=== PATIENT | female | born 1990 | race Caucasian/White ===

== ENCOUNTER → 2018-06-11 | Outpatient (CLI) | payer OTHER ==
[~2018-06-11] MED LIST: BENZ100A PO; CEPH500 PO; DIAZ5 PO; HYDACE5 PO; HYDACE5325 PO; IBUP600 PO; Norco 5-325 Ta1 EACH PO; OXYACE5T PO; PHENA200 PO; Percocet 5-3251 EACH PO; RXHYDACE PO; SULTRIDS PO
== END | disposition home or self-care (01) ==
LOC: LAB SHORT 14:54 → LAB EV 14:54
DX: N92.0 Excessive and frequent menstruation with regular cycle (principal)
CPT/HCPCS: 87070; 87205

== ENCOUNTER → 2018-06-30 | Outpatient (CLI) | payer OTHER ==
[2018-06-30 13:15] LABS: Source, Urine Clean Catch
[2018-06-30 13:58] LABS: Bacteria Many /hpf; Hyaline Casts Rare /lpf (0-2); Red Blood Cells, Urine Rare /hpf (0-2); Squamous Epithelial Cells Many /hpf (Few); Transitional Epithelial Cells Rare /hpf (0-Rare)
[2018-07-01 09:42] LABS: Candida species (DNA Probe) Negative (NEGATIVE); G. vaginalis (DNA Probe) Negative (NEGATIVE); T. vaginalis (DNA Probe) Negative (NEGATIVE)
[2018-07-02 09:12] LABS: HBSAG SCREEN Negative (Negative); HEP A AB, IGM Negative (Negative); HEP B CORE AB, IGM Negative (Negative); HEP C VIRUS AB <0.1 (0.0-0.9)
[2018-07-02 11:07] LABS: HIV SCREEN 4TH GENERATION WRFX Non Reactive (Non Reactive)
[2018-07-03 04:10] LABS: CHLAMYDIA TRACHOMATIS, NAA Negative (Negative); NEISSERIA GONORRHOEAE, NAA Negative (Negative)
== END | disposition home or self-care (01) ==
LOC: LAB EV 12:15 → LAB SHORT 12:15
PROVIDERS: Physician Assistant
DX: R30.0 Dysuria (principal); Z20.9 Contact with and (suspected) exposure to unspecified communicable disease
CPT/HCPCS: 80074; 81015; 84702; 86592; 86694; 86695; 86696; 87086; 87389; 87480; 87491; 87510; 87591; 87660

== ENCOUNTER → 2019-03-22 | Outpatient (CLI) | payer OTHER | LOC: LAB SHORT 11:36 → LAB EV 11:36 | DX: N39.0 Urinary tract infection, site not specified (principal) | CPT/HCPCS: 87077; 87086; 87186 ==

== ENCOUNTER 2019-11-13 23:09 | Emergency (ER) | payer OTHER ==
[~2019-11-13] VITALS: Ht 162.6 cm; Wt 65.8 kg
[2019-11-13] MEDS ORDERED: KETO10 PO (23:36)
== END 2019-11-14 | disposition home or self-care (01) ==
LOC: ER 23:09
DX: J02.0 Streptococcal pharyngitis (principal); J02.8 Acute pharyngitis due to other specified organisms; F17.200 Nicotine dependence, unspecified, uncomplicated
CPT/HCPCS: 87430; 96372; 99282-25; A9270-GY; J0561; J1100

== ENCOUNTER → 2020-03-10 | Outpatient (CLI) | payer OTHER ==
[~2020-03-10] MED LIST changes: +KETO10 PO
== END | disposition home or self-care (01) ==
LOC: LAB EV 09:51 → LAB SHORT 09:51
DX: J02.9 Acute pharyngitis, unspecified (principal)
CPT/HCPCS: 87081

== ENCOUNTER 2020-03-11 04:40 | Emergency (ER) | payer OTHER ==
[~2020-03-11] VITALS: Ht 162.6 cm; Wt 77.1 kg
== END 2020-03-11 06:36 | disposition home or self-care (01) ==
LOC: ER 04:40
DX: J02.9 Acute pharyngitis, unspecified (principal); F17.200 Nicotine dependence, unspecified, uncomplicated
CPT/HCPCS: 86308; 99283; J7512

== ENCOUNTER → 2020-08-02 | Outpatient (CLI) | payer OTHER | END | disposition home or self-care (01) | LOC: LAB SHORT 17:18 → LAB EV 17:18 | DX: J02.9 Acute pharyngitis, unspecified (principal); R53.83 Other fatigue | CPT/HCPCS: 84443; 87081 ==

== ENCOUNTER → 2021-03-29 | Outpatient (CLI) | payer OTHER | END | disposition home or self-care (01) | LOC: LAB 14:06 → LAB SHORT 14:06 | DX: N39.0 Urinary tract infection, site not specified (principal) | CPT/HCPCS: 87077; 87086; 87186 ==

== ENCOUNTER 2021-06-13 17:50 | Emergency (ER) | payer OTHER ==
[~2021-06-13] VITALS: Ht 162.6 cm; Wt 84.4 kg
[2021-06-13] MEDS ORDERED: ONDA4ODT MM (18:19)
== END 2021-06-13 18:30 | disposition home or self-care (01) ==
LOC: ER 17:50
DX: U07.1 COVID-19 (principal); F17.200 Nicotine dependence, unspecified, uncomplicated
CPT/HCPCS: 99282

== ENCOUNTER → 2021-11-28 | Outpatient (CLI) | payer OTHER ==
[~2021-11-28] MED LIST changes: +CYCL10 PO; +LIDO700A20 TOP; +ONDA4ODT MM
[2021-11-29 09:44] LABS: Candida species (DNA Probe) Negative (NEGATIVE); G. vaginalis (DNA Probe) Positive (NEGATIVE); T. vaginalis (DNA Probe) Negative (NEGATIVE)
== END | disposition home or self-care (01) ==
LOC: LAB SHORT 12:20 → LAB 12:20
PROVIDERS: Advanced Practice Midwife
DX: Z01.419 Encounter for gynecological examination (general) (routine) without abnormal findings (principal); N76.0 Acute vaginitis
CPT/HCPCS: 87480; 87510; 87660

== ENCOUNTER 2021-12-29 19:22 | Emergency (ER) | payer OTHER ==
[~2021-12-29] VITALS: Ht 162.6 cm; Wt 83.9 kg
[2021-12-29] MEDS ORDERED: Lisinopril2.5 MG PO (21:42)
[2021-12-29] MEDS ORDERED: BUSPIRONE HCL5 M6 PO (21:42)
== END 2021-12-29 22:21 | disposition home or self-care (01) ==
LOC: ER 19:22
DX: S60.121A Contusion of right index finger with damage to nail, initial encounter (principal); W23.0XXA Caught, crushed, jammed, or pinched between moving objects, initial encounter; Z79.899 Other long term (current) drug therapy; J45.909 Unspecified asthma, uncomplicated; F17.200 Nicotine dependence, unspecified, uncomplicated
CPT/HCPCS: 29130; 73140; 99283-25

== ENCOUNTER → 2022-01-03 | Outpatient (CLI) | payer OTHER ==
[~2022-01-03] MED LIST changes: +BUSPIRONE HCL5 M6 PO; +Lisinopril2.5 MG PO
== END | disposition home or self-care (01) ==
LOC: PLD 12:59 → LAB SHORT 12:59
DX: R87.810 Cervical high risk human papillomavirus (HPV) DNA test positive (principal)
CPT/HCPCS: 88305

== ENCOUNTER → 2022-01-03 | Outpatient (CLI) | payer OTHER ==
[2022-01-03 13:45] LABS: Candida species (DNA Probe) Negative (NEGATIVE); G. vaginalis (DNA Probe) Negative (NEGATIVE); T. vaginalis (DNA Probe) Negative (NEGATIVE)
== END | disposition home or self-care (01) ==
LOC: LAB SHORT 09:51
PROVIDERS: Obstetrics & Gynecology
DX: N89.8 Other specified noninflammatory disorders of vagina (principal)
CPT/HCPCS: 87480; 87510; 87660

== ENCOUNTER 2022-02-07 18:20 | Emergency (ER) | payer OTHER ==
[~2022-02-07] VITALS: Ht 162.6 cm; Wt 90.7 kg
[~2022-02-07 18:20] MED LIST changes: +NITR100CA PO
[2022-02-07] MEDS ORDERED: LOSARTAN POTASS25 M2 PO (18:26)
[2022-02-07] MEDS ORDERED: Tri-Sprintec1 EACH PO (18:26)
[2022-02-07] MEDS ORDERED: Monodox100 MG PO (18:36)
== END 2022-02-07 19:22 | disposition home or self-care (01) ==
LOC: ER 18:20
DX: A56.02 Chlamydial vulvovaginitis (principal); J45.909 Unspecified asthma, uncomplicated; F17.200 Nicotine dependence, unspecified, uncomplicated; Z79.899 Other long term (current) drug therapy
CPT/HCPCS: 99282

== ENCOUNTER → 2022-11-10 | Outpatient (CLI) | payer OTHER ==
[~2022-11-10] MED LIST changes: +LOSARTAN POTASS25 M2 PO; +Monodox100 MG PO; +Tri-Sprintec1 EACH PO
[2022-11-10 17:05] LABS: Source, Urine Clean Catch
[2022-11-10 17:30] LABS: Appearance, Urine Clear (Clear); Bilirubin, Urine Neg (Neg); Blood, Urine 1+ (Neg); Color, Urine Yellow (P-Yellow); Glucose Qualitative, Urine Neg (Neg); Ketones, Urine Neg (Neg); Leukocyte Esterase, Urine 1+ (Neg); Nitrite, Urine Neg (Neg); Protein, Urine Neg (Neg); Specific Gravity, Urine 1.015 (1.003-1.022); Urobilinogen, Urine NORM (Normal)
[2022-11-10 17:36] LABS: Bacteria Many /hpf; Squamous Epithelial Cells Mod /hpf (Few)
[2022-11-10 17:44] LABS: U Amphetamine Screen Not Detected; U Barbituate Screen Not Detected; U Benzodiazapine Screen Not Detected; U Buprenorphine Screen Not Detected; U Cannabinoids Screen Not Detected; U Cocaine Screen Not Detected; U Methadone Screen Not Detected; U Methamphetamine Screen Not Detected; U Opiates Screen Not Detected; U Oxycodone Screen Not Detected; U Phencyclidine Screen Not Detected; U Propoxyphene Screen Not Detected
== END | disposition home or self-care (01) ==
LOC: LAB SHORT 16:00 → LAB 16:00
PROVIDERS: Advanced Practice Midwife
DX: Z34.01 Encounter for supervision of normal first pregnancy, first trimester (principal)
CPT/HCPCS: 81001; 87086

== ENCOUNTER → 2022-12-08 | Outpatient (CLI) | payer OTHER ==
[2022-12-13 09:12] LABS: CHLAMYDIA TRACHOMATIS, NAA Negative (Negative); HPV 16 Negative (Negative); HPV 18 Negative (Negative); HPV OTHER HR TYPES Negative (Negative)
== END ==
LOC: LAB SHORT 18:25 → LAB 18:25
PROVIDERS: Advanced Practice Midwife
DX: R87.619 Unspecified abnormal cytological findings in specimens from cervix uteri (principal); Z11.3 Encounter for screening for infections with a predominantly sexual mode of transmission
CPT/HCPCS: 87491; 87591; 87624; 88175

== ENCOUNTER → 2023-05-25 | Outpatient (CLI) | payer OTHER | LOC: LAB 18:14 → LAB SHORT 18:14 | DX: O09.93 Supervision of high risk pregnancy, unspecified, third trimester (principal); Z3A.00 Weeks of gestation of pregnancy not specified | CPT/HCPCS: 87081; 87150 ==

== ENCOUNTER 2023-06-19 06:58 | Inpatient (IN) | payer OTHER ==
[~2023-06-19] VITALS: Ht 162.6 cm; Wt 125.9 kg
[2023-06-19] VITALS (34 sets, daily range): BP systolic 103–177; BP diastolic 53–89
[2023-06-19 08:06] LABS: BASOPHILS ABSOLUTE AUTO 0.03 K/mm3 (0.00-0.23); BASOPHILS PERCENT AUTO 0 % (0-2); EOSINOPHILS ABSOLUTE AUTO 0.11 K/mm3 (0.00-0.68); EOSINOPHILS PERCENT AUTO 1 % (0-6); IMMATURE GRAN ABSOLUTE AUTO 0.06 K/mm3 (0.00-0.10); IMMATURE GRAN PERCENT AUTO 1 % (0-1); LYMPHOCYTES ABSOLUTE AUTO 2.92 K/mm3 (0.84-5.20); LYMPHOCYTES PERCENT AUTO 24 % (21-46); MONOCYTES ABSOLUTE AUTO 0.73 K/mm3 (0.16-1.47); MONOCYTES PERCENT AUTO 6 % (4-13); Mean Corpuscular HGB 29.6 pg (26.0-34.0); Mean Corpuscular HGB Conc 35.3 g/dL (31.5-36.5); Mean Corpuscular Volume 84 fL (80-100); NEUTROPHILS PERCENT AUTO 68 % (41-73); Platelet Count 261 K/mm3 (150-400); RDW Coefficient Variation 14.7 % (11.7-14.2); RDW Standard Deviation 45.1 fL (35.1-46.3); Red Blood Cell Count 4.05 M/mm3 (3.80-5.20); White Blood Cell Count 11.95 K/mm3 (4.00-11.30)
[2023-06-19] MEDS ORDERED: HYDHCL25 PO (09:10)
[2023-06-19] MEDS ORDERED: PROP10 PO (09:11)
[2023-06-20] VITALS (83 sets, daily range): BP systolic 106–194; BP diastolic 56–113
--- NOTE | 2023-06-20 07:14 | NUR ---
Report given to Lauren GUTIERREZ
[2023-06-21] VITALS (23 sets, daily range): BP systolic 101–174; BP diastolic 49–82
--- NOTE | 2023-06-21 03:50 | NUR ---
06/21/23 0350 Lachelle Marc BABY BOY BORN AT 0343. CORD SEGEMENT WENT WITH BABY TO RT. THERE WAS NO CORD BLOOD SAMPLE. [place] CATH PLACED UPON ARRIVAL TO OR. PT ALSO NEEDED A HAND ASSIST AND THUS WAS PLACED IN LITHOTOMY WITH STIRRUPS.
[2023-06-21 08:32] LABS: BASOPHILS ABSOLUTE AUTO 0.03 K/mm3 (0.00-0.23); BASOPHILS PERCENT AUTO 0 % (0-2); EOSINOPHILS PERCENT AUTO 0 % (0-6); Hemoglobin 7.4 g/dL (11.5-16.0); IMMATURE GRAN ABSOLUTE AUTO 0.09 K/mm3 (0.00-0.10); IMMATURE GRAN PERCENT AUTO 1 % (0-1); LYMPHOCYTES ABSOLUTE AUTO 1.43 K/mm3 (0.84-5.20); LYMPHOCYTES PERCENT AUTO 8 % (21-46); MONOCYTES ABSOLUTE AUTO 0.79 K/mm3 (0.16-1.47); MONOCYTES PERCENT AUTO 4 % (4-13); Mean Corpuscular HGB 29.2 pg (26.0-34.0); Mean Corpuscular HGB Conc 33.6 g/dL (31.5-36.5); Mean Corpuscular Volume 87 fL (80-100); Mean Platelet Volume 9.6 fL (9.1-12.4); NEUTROPHILS ABSOLUTE AUTO 15.87 K/mm3 (1.96-9.15); NEUTROPHILS PERCENT AUTO 87 % (41-73); Platelet Count 206 K/mm3 (150-400); RDW Coefficient Variation 14.9 % (11.7-14.2); RDW Standard Deviation 47.2 fL (35.1-46.3); Red Blood Cell Count 2.53 M/mm3 (3.80-5.20); White Blood Cell Count 18.21 K/mm3 (4.00-11.30)
[2023-06-21 17:51] LABS: BASOPHILS ABSOLUTE AUTO 0.04 K/mm3 (0.00-0.23); BASOPHILS PERCENT AUTO 0 % (0-2); EOSINOPHILS ABSOLUTE AUTO 0.03 K/mm3 (0.00-0.68); EOSINOPHILS PERCENT AUTO 0 % (0-6); Hematocrit 21.6 % (33.0-51.0); Hemoglobin 7.4 g/dL (11.5-16.0); IMMATURE GRAN ABSOLUTE AUTO 0.12 K/mm3 (0.00-0.10); IMMATURE GRAN PERCENT AUTO 1 % (0-1); LYMPHOCYTES ABSOLUTE AUTO 2.49 K/mm3 (0.84-5.20); LYMPHOCYTES PERCENT AUTO 12 % (21-46); MONOCYTES ABSOLUTE AUTO 1.41 K/mm3 (0.16-1.47); MONOCYTES PERCENT AUTO 7 % (4-13); Mean Corpuscular HGB 29.4 pg (26.0-34.0); Mean Corpuscular HGB Conc 34.3 g/dL (31.5-36.5); Mean Corpuscular Volume 86 fL (80-100); Mean Platelet Volume 9.5 fL (9.1-12.4); NEUTROPHILS ABSOLUTE AUTO 17.26 K/mm3 (1.96-9.15); NEUTROPHILS PERCENT AUTO 81 % (41-73); Platelet Count 250 K/mm3 (150-400); RDW Coefficient Variation 15.1 % (11.7-14.2); RDW Standard Deviation 46.8 fL (35.1-46.3); Red Blood Cell Count 2.52 M/mm3 (3.80-5.20); White Blood Cell Count 21.35 K/mm3 (4.00-11.30)
[2023-06-22] VITALS (18 sets, daily range): BP systolic 115–163; BP diastolic 55–91
[2023-06-22 06:05] LABS: Hematocrit 18.6 % (33.0-51.0); Hemoglobin 6.2 g/dL (11.5-16.0); Mean Corpuscular HGB Conc 33.3 g/dL (31.5-36.5); Mean Corpuscular Volume 87 fL (80-100); Mean Platelet Volume 9.3 fL (9.1-12.4); Platelet Count 219 K/mm3 (150-400); RDW Coefficient Variation 15.2 % (11.7-14.2); RDW Standard Deviation 47.9 fL (35.1-46.3); Red Blood Cell Count 2.14 M/mm3 (3.80-5.20); White Blood Cell Count 15.39 K/mm3 (4.00-11.30)
--- NOTE | 2023-06-22 06:54 | NUR ---
[address] Riddle of hematocrit and hemoglobin results. Order received to transfuse 1 unit PRBC.
[2023-06-22 15:00] LABS: Hematocrit 22.1 % (33.0-51.0); Hemoglobin 7.6 g/dL (11.5-16.0)
[2023-06-23 00:47] VITALS: BP 116/61
[2023-06-23 05:31] VITALS: BP 140/79
[2023-06-23 05:42] LABS: BASOPHILS ABSOLUTE AUTO 0.03 K/mm3 (0.00-0.23); BASOPHILS PERCENT AUTO 0 % (0-2); EOSINOPHILS ABSOLUTE AUTO 0.11 K/mm3 (0.00-0.68); EOSINOPHILS PERCENT AUTO 1 % (0-6); Hematocrit 22.4 % (33.0-51.0); Hemoglobin 7.7 g/dL (11.5-16.0); IMMATURE GRAN ABSOLUTE AUTO 0.17 K/mm3 (0.00-0.10); IMMATURE GRAN PERCENT AUTO 1 % (0-1); LYMPHOCYTES ABSOLUTE AUTO 3.96 K/mm3 (0.84-5.20); LYMPHOCYTES PERCENT AUTO 32 % (21-46); MONOCYTES ABSOLUTE AUTO 0.86 K/mm3 (0.16-1.47); MONOCYTES PERCENT AUTO 7 % (4-13); Mean Corpuscular HGB 29.8 pg (26.0-34.0); Mean Corpuscular HGB Conc 34.4 g/dL (31.5-36.5); Mean Corpuscular Volume 87 fL (80-100); Mean Platelet Volume 8.9 fL (9.1-12.4); NEUTROPHILS ABSOLUTE AUTO 7.29 K/mm3 (1.96-9.15); NEUTROPHILS PERCENT AUTO 59 % (41-73); NRBC ABSOLUTE 0.02 K/mm3 (0.00-0.02); NRBC Auto 0.2 /100 WBC (0.0-0.2); Platelet Count 242 K/mm3 (150-400); RDW Coefficient Variation 14.7 % (11.7-14.2); RDW Standard Deviation 46.6 fL (35.1-46.3); Red Blood Cell Count 2.58 M/mm3 (3.80-5.20); White Blood Cell Count 12.42 K/mm3 (4.00-11.30)
[2023-06-23 08:23] VITALS: BP 135/79
[2023-06-23 11:47] VITALS: BP 136/80
== END 2023-06-23 12:40 | disposition home or self-care (01) | DRG 787 ==
LOC: BC 06:58 → OBS 06:58 → BC 07:06
PROVIDERS: Obstetrics & Gynecology; ADMIT Obstetrics & Gynecology
PROC: 3E0P7VZ Introduction of Hormone into Female Reproductive, Via Natural or Artificial Opening (ICD-10-PCS; principal; 2023-06-19)
PROC: 3E033VJ Introduction of Other Hormone into Peripheral Vein, Percutaneous Approach (ICD-10-PCS; 2023-06-19)
PROC: 0U7C3ZZ Dilation of Cervix, Percutaneous Approach (ICD-10-PCS; 2023-06-19)
PROC: 10907ZC Drainage of Amniotic Fluid, Therapeutic from Products of Conception, Via Natural or Artificial Opening (ICD-10-PCS; 2023-06-19)
PROC: 4A1HXCZ Monitoring of Products of Conception, Cardiac Rate, External Approach (ICD-10-PCS; 2023-06-19)
PROC: 10H07YZ Insertion of Other Device into Products of Conception, Via Natural or Artificial Opening (ICD-10-PCS; 2023-06-19)
PROC: 10D00Z1 Extraction of Products of Conception, Low, Open Approach (ICD-10-PCS; 2023-06-21)
PROC: 30233N1 Transfusion of Nonautologous Red Blood Cells into Peripheral Vein, Percutaneous Approach (ICD-10-PCS; 2023-06-22)
DX: O10.92 Unspecified pre-existing hypertension complicating childbirth (principal); D62 Acute posthemorrhagic anemia; Z3A.39 39 weeks gestation of pregnancy; Z37.0 Single live birth; O99.344 Other mental disorders complicating childbirth; O90.81 Anemia of the puerperium; O99.214 Obesity complicating childbirth; F41.3 Other mixed anxiety disorders; O63.1 Prolonged second stage (of labor); O99.334 Smoking (tobacco) complicating childbirth; F17.210 Nicotine dependence, cigarettes, uncomplicated; O33.4XX0 Maternal care for disproportion of mixed maternal and fetal origin, not applicable or unspecified; O99.52 Diseases of the respiratory system complicating childbirth; J45.909 Unspecified asthma, uncomplicated; Z79.899 Other long term (current) drug therapy; Z67.10 Type A blood, Rh positive
CPT/HCPCS: 36415; 36430; 51702; 59200; 85014; 85018; 85025; 85027; 86850; 86900; 86901; 86923; A9270; J0456; J0690; J1100; J1885; J2001; J2250; J2371; J2590; J2765; J2916; J3010; J7030; J7050; J7120; P9016

== ENCOUNTER 2023-07-13 11:27 | Inpatient (IN) | payer OTHER ==
[~2023-07-13] VITALS: Ht 162.6 cm; Wt 116.2 kg
[2023-07-13] VITALS (12 sets, daily range): BP systolic 131–148; BP diastolic 83–95
[~2023-07-13 11:27] MED LIST changes: +ACET500 PO; +ALBU90OI INH; +HYDHCL25 PO; +IBUP800 PO; +LORA.5 PO; +OXAYDO5 M1 PO; +PRENATAL TABLE1 EAC2 PO; +PROP10 PO
[2023-07-13] MEDS ORDERED: IRON18 MG PO (12:05)
[2023-07-13] MEDS ORDERED: PROBIOTIC1 EA14 PO (12:05)
--- NOTE | 2023-07-13 17:21 | NUR ---
DISCHARGE NOTE: PATIENT WAS EDUCATED ON DISCHARGE INSTRUCTIONS. SHE VERBALIZED UNDERSTANDING OF INSTRUCTIONS AND HAD NO FURTHER QUESTIONS AT THIS TIME. IV WAS TAKEN OUT AND WNL. PAIN IS MANAGED WITH PO PAIN MEDS. HER ABD TRANSVERSE INCISION HAS GAUZE AND A MEDIPORE DRESSING THAT IS C/D/I. PATIENT IS INDEP. IN THE ROOM. SHE IS TOLERATING PO INTAKE AND HAS VOIDED. PATIENT IS DRESSED AND HAS PERSONAL ITEMS IN THE ROOM GATHERED. PATIENT WAS WHEELCHAIRED OUT TO HER FAMILYS CAR TO BE TAKEN HOME. PERSCRIPTIONS WERE ALREADY SENT BY DR. SIMMONS TO HER PREFERRED PHARMACY.
== END 2023-07-13 17:16 | disposition home or self-care (01) | DRG 776 ==
LOC: SURS 11:27 → PRE IP 13:00 → SURS 15:28
PROVIDERS: ADMIT Obstetrics & Gynecology
PROC: 0J980ZZ Drainage of Abdomen Subcutaneous Tissue and Fascia, Open Approach (ICD-10-PCS; principal; 2023-07-13 13:00)
DX: O86.01 Infection of obstetric surgical wound, superficial incisional site (principal); L76.34 Postprocedural seroma of skin and subcutaneous tissue following other procedure; E66.01 Morbid (severe) obesity due to excess calories; F41.8 Other specified anxiety disorders; O90.2 Hematoma of obstetric wound; F17.210 Nicotine dependence, cigarettes, uncomplicated; B96.89 Other specified bacterial agents as the cause of diseases classified elsewhere; J45.909 Unspecified asthma, uncomplicated; Z98.890 Other specified postprocedural states; Z79.891 Long term (current) use of opiate analgesic; Z79.899 Other long term (current) drug therapy
CPT/HCPCS: 84703; 87070; 87075; 87077; 87186; 87205; A9270; J0690; J1100; J1170; J1885; J2250; J2405; J2704; J3010; J7120

== ENCOUNTER → 2023-07-20 | Outpatient (CLI) | payer OTHER ==
[~2023-07-20] MED LIST changes: +IRON18 MG PO; +PROBIOTIC1 EA14 PO
[2023-07-21 15:13] LABS: Candida species (DNA Probe) Positive (NEGATIVE); G. vaginalis (DNA Probe) Negative (NEGATIVE); T. vaginalis (DNA Probe) Negative (NEGATIVE)
== END ==
LOC: LAB SHORT 17:26 → LAB 17:26
PROVIDERS: Obstetrics & Gynecology
DX: N76.0 Acute vaginitis (principal)
CPT/HCPCS: 87480; 87510; 87660

== ENCOUNTER → 2023-08-02 | Outpatient (CLI) | payer OTHER | END | disposition home or self-care (01) | LOC: LAB 09:52 → LAB SHORT 09:52 | DX: T81.41XA Infection following a procedure, superficial incisional surgical site, initial encounter (principal) | CPT/HCPCS: 87070; 87077; 87186; 87205 ==

== ENCOUNTER 2023-08-17 01:43 | Day surgery (SDC) | payer OTHER | END 2023-08-17 22:43 | disposition home or self-care (01) | LOC: WOUND | DX: T81.41XD Infection following a procedure, superficial incisional surgical site, subsequent encounter (principal); G89.18 Other acute postprocedural pain | CPT/HCPCS: G0463 ==

== ENCOUNTER 2023-08-24 03:01 | Day surgery (SDC) | payer OTHER | END 2023-08-24 22:37 | disposition home or self-care (01) | LOC: WOUND 03:01 | DX: T81.41XD Infection following a procedure, superficial incisional surgical site, subsequent encounter (principal); G89.18 Other acute postprocedural pain | CPT/HCPCS: G0463 ==

== ENCOUNTER 2023-09-07 03:49 | Day surgery (SDC) | payer OTHER | END 2023-09-07 22:50 | disposition home or self-care (01) | LOC: WOUND 03:49 | DX: T81.41XD Infection following a procedure, superficial incisional surgical site, subsequent encounter (principal); G89.18 Other acute postprocedural pain | CPT/HCPCS: 99406; G0463 ==

== ENCOUNTER 2023-09-14 03:05 | Day surgery (SDC) | payer OTHER | END 2023-09-14 23:10 | disposition home or self-care (01) | LOC: WOUND 03:05 | DX: T81.41XD Infection following a procedure, superficial incisional surgical site, subsequent encounter (principal); G89.18 Other acute postprocedural pain; Y83.8 Other surgical procedures as the cause of abnormal reaction of the patient, or of later complication, without mention of misadventure at the time of the procedure | CPT/HCPCS: G0463 ==

== ENCOUNTER → 2023-11-19 | Outpatient (CLI) | payer OTHER ==
[2023-11-20 09:25] LABS: Candida Group, PCR NOT DETECTED (NOT DETECT)
[2023-11-20 09:27] LABS: Bacterial Vaginosis PCR Positive (NEGATIVE); Candida glabrata-krusei, PCR DETECTED (NOT DETECT)
== END | disposition home or self-care (01) ==
LOC: LAB 14:09 → LAB SHORT 14:09
PROVIDERS: Obstetrics & Gynecology
DX: N76.0 Acute vaginitis (principal)
CPT/HCPCS: 87481; 87661; 87801

== ENCOUNTER → 2024-08-08 | Outpatient (CLI) | payer OTHER ==
[2024-08-08 20:00] LABS: Bacterial Vaginosis PCR Negative (NEGATIVE); Candida glabrata-krusei, PCR NOT DETECTED (NOT DETECT)
[2024-08-08 21:29] LABS: Candida Group, PCR DETECTED (NOT DETECT)
== END | disposition home or self-care (01) ==
LOC: LAB SHORT 18:23 → LAB 18:23
PROVIDERS: Obstetrics & Gynecology
DX: N89.8 Other specified noninflammatory disorders of vagina (principal)
CPT/HCPCS: 87481; 87661; 87801

== ENCOUNTER → 2024-10-02 | Outpatient (CLI) | payer OTHER ==
[2024-10-02 10:16] LABS: Calcium, Urine 9.3 mg/dL (< 17.5)
[2024-10-02 10:17] LABS: Creatinine Urine 55.7 mg/dL (27.00-270.00)
== END ==
LOC: LAB SHORT 01:45 → LAB 01:45
PROVIDERS: Internal Medicine Endocrinology, Diabetes & Metabolism
DX: M81.0 Age-related osteoporosis without current pathological fracture (principal)
CPT/HCPCS: 81050; 82340; 82570

== ENCOUNTER → 2024-10-23 | Outpatient (CLI) | payer OTHER ==
[2024-10-24 12:11] LABS: Bacterial Vaginosis PCR Negative (NEGATIVE); Candida Group, PCR NOT DETECTED (NOT DETECT); Candida glabrata-krusei, PCR NOT DETECTED (NOT DETECT)
== END | disposition home or self-care (01) ==
LOC: LAB 18:01 → LAB SHORT 18:01
PROVIDERS: Obstetrics & Gynecology
DX: Z01.419 Encounter for gynecological examination (general) (routine) without abnormal findings (principal); N89.8 Other specified noninflammatory disorders of vagina
CPT/HCPCS: 81515